=== PATIENT | male | born 1940 | race Caucasian/White ===

== ENCOUNTER 2018-11-02 12:55 | Inpatient (IN) | payer MEDICARE, MEDICAID ==
[~2018-11-02] VITALS: Ht 182.8 cm; Wt 68.0 kg
--- NOTE | ~2018-11-02 | DS ---
[place], [place] DISCHARGE SUMMARY NAME: HARLAN ROJAS [facility] #: [id number] UNIT #: [id number] ROOM: 317 DOCTOR: JOSE AGUERO MD BIRTHDATE: [birth year] DOS: 11/09/2018 CHIEF COMPLAINT: "I am ready for bed." HISTORY OF PRESENT ILLNESS: This is an 78-year-old white male who resides at [facility] in [place], [place]. While in the facility, he has had a change in his cognition. He has also had a corresponding increase in agitation and aggression. The patient has been an elopement risk and has been difficult to redirect. He has also been exhibiting delusions and sexually inappropriate behavior. He has attempted to kiss STNAs and touch their breasts, attempts to redirect have been unsuccessful and it was felt that an inpatient stabilization at the [facility] was warranted. He was subsequently admitted to rule out organic factors, to engage in individual and wynn milieu activity and to return to the least restrictive environment. SUMMARY OF HOSPITAL COURSE: The patient was admitted to the unit where routine screening examinations revealed a vitamin B12 level low at 227, so vitamin B12 1000 mcg IM monthly was ordered. His vitamin D level was also low at 17.8, so vitamin D 50,000 International Units weekly was started. The patient had his Namzaric discontinued due to lack of effectiveness and he was started simultaneously then on Exelon patch 4.6 mg a day and maintained on the Namenda component at 10 mg b.i.d. Over the course of his week stay, the Exelon patch was increased from the 4.6 mg dose to the 13.3 mg dose with a corresponding improvement in his behavior. His impulsivity discontinued. He was no longer exit seeking and he was not sexually inappropriate. He engaged in activities well and redirected with verbal prompting alone. Sleep and appetite normalized. He was subsequently discharged then back to [place]. MENTAL STATUS AT DISCHARGE: He is alert and oriented to person, possibly place, not to time. Mood does seem to be more euthymic. Affect appropriate. No symptoms of elliott or hypomania were present. No psychotic symptoms were noted. Short-term memory still remained problematic. DIAGNOSES AT THE TIME OF DISCHARGE: Intermittent explosive disorder and Alzheimer's dementia. DISPOSITION: The patient is returning to [facility] in [place], [place]. I will be the treating psychiatrist of record. His prescriptions were escribed to [facility]. At the time of discharge, he was psychiatrically and medically stable. [place], [place] DISCHARGE SUMMARY NAME: HARLAN ROJAS UNIT #: [id number] ROOM: [facility] DOCTOR: JOSE AGUERO MD BIRTHDATE: [birth year] JOSE AGUERO MD CM:DISCHARG [id number] JOSE AGUERO MD 11/09/18 1107 interface
[2018-11-02] MEDS ORDERED: ASPIRIN CHEWABL81 MG PO (13:08)
[2018-11-02] MEDS ORDERED: PLAVIX75 M1 PO (13:08)
[2018-11-02] MEDS ORDERED: LIPITOR80 MG PO (13:08)
[2018-11-02] MEDS ORDERED: MELATONIN3 MG PO (13:09)
[2018-11-02] MEDS ORDERED: NAMZARIC 28 MG1 EACH PO (13:09)
[2018-11-02] MEDS ORDERED: REMERON15 M2 PO (13:10)
[2018-11-02] MEDS ORDERED: OMEPRAZOLE D/R20 MG PO (13:10)
[2018-11-02] MEDS ORDERED: SEROQUEL25 MG PO (13:11)
[2018-11-02] MEDS ORDERED: TAGAMET HB200 M1 PO (13:13)
[2018-11-02] MEDS ORDERED: MIDODRINE HCL5 M1 PO (13:14)
[2018-11-02 16:15] VITALS: BP 182/98
[2018-11-02 16:16] VITALS: BP 182/98
[2018-11-02 19:03] LABS: BILIRUBIN NEGATIVE (NEGATIVE); BLOOD NEGATIVE (NEGATIVE); CLARITY CLEAR (CLEAR); COLOR YELLOW (YELLOW); GLUCOSE NEGATIVE (NEGATIVE); KETONE NEGATIVE (NEGATIVE); LEUKO ESTERASE NEGATIVE (NEGATIVE); NITRITE NEGATIVE (NEGATIVE); SPECIFIC GRAVITY <= 1.005 (1.005-1.030); UROBILINOGEN 0.2 E.U./dl (0.2-1.0)
[2018-11-02 19:25] LABS: BACTERIA TRACE; EPITHELIAL CELLS 0-2; HYALINE CAST 0-2; WBC 0-2 wbc/hpf (0-5)
[2018-11-02 20:00] VITALS: BP 176/88
[2018-11-02 21:05] VITALS: BP 142/84
[2018-11-03 06:51] LABS: BASO # 0.1 10*3/uL (0.0-0.1); BASO % 1.2 % (0.0-1.0); HEMATOCRIT 42.4 % (42.0-52.0); HEMOGLOBIN 13.5 g/dl (14.0-18.0); LYMPH # 1.8 10*3/uL (1.3-4.4); LYMPH % 21.8 % (27.0-41.0); MEAN CELL VOLUME 92.6 fl (80.0-94.0); MEAN CORPUSCULAR HGB 29.5 pg (27.0-31.0); MEAN CORPUSCULAR HGB CONC 31.8 g/dl (33.0-37.0); MEAN PLATELET VOLUME 9.1 fl (9.6-12.3); MONO # 0.9 10*3/uL (0.1-1.0); MONO % 10.9 % (3.0-9.0); NEUT # 5.3 10*3/uL (2.3-7.9); NEUT % 65.7 % (47.0-73.0); PLATELET COUNT AUTOMATED 340 10*3/uL (130-400); RED BLOOD COUNT 4.58 10*6/uL (4.50-5.90); RED CELL DISTRI WIDTH 13.7 % (0-14.5); WHITE BLOOD COUNT 8.1 10*3/uL (4.8-10.8)
[2018-11-03 07:11] LABS: ALBUMIN 2.9 gm/dl (3.1-4.5); ALKALINE PHOSPHATASE 156 U/L (45-117); BUN 21 mg/dl (7-24); CHLORIDE 107 mmol/L (98-107); CHOLESTEROL 125 mg/dL (<200); CREATININE 1.32 mg/dL (0.70-1.30); HDL CHOLESTEROL 37 mg/dl (40-60); LDL CHOLESTEROL 67 mg/dL (9-159); POTASSIUM 4.1 mmol/L (3.5-5.1); SGOT/AST 19 IU/L (3-35); SGPT/ALT 23 U/L (12-78); SODIUM 140 mmol/L (136-145); TOTAL PROTEIN 6.9 gm/dL (6.4-8.2); TRIGLYCERIDES 106 mg/dl (<150); VLDL CHOLESTEROL 21 mg/dL (6-40)
[2018-11-03 07:15] VITALS: BP 144/78
[2018-11-03 07:55] LABS: VITAMIN D, 25-HYDROXY 17.8 ng/mL (30-100)
[2018-11-03 20:00] VITALS: BP 132/68
[2018-11-04 07:17] VITALS: BP 130/58
[2018-11-04 20:00] VITALS: BP 133/72
[2018-11-05 08:02] VITALS: BP 154/79
[2018-11-05 20:00] VITALS: BP 140/72
[2018-11-06 07:51] VITALS: BP 126/71
[2018-11-06 20:18] VITALS: BP 137/70
[2018-11-07 07:46] VITALS: BP 119/65
[2018-11-07 20:05] VITALS: BP 136/68
[2018-11-08 07:39] VITALS: BP 142/81
[2018-11-08 20:33] VITALS: BP 144/70
[2018-11-09 07:36] VITALS: BP 133/56
[2018-11-09] MEDS ORDERED: EXELON13.3 MG/21 T (09:55)
[2018-11-09] MEDS ORDERED: MIRTAZAPINE15 M2 PO (09:55)
[2018-11-09] MEDS ORDERED: Vitamin D PO (09:55)
[2018-11-09] MEDS ORDERED: MEMANTINE HCL10 MG PO (09:55)
[2018-11-09] MEDS ORDERED: B121000 MCG/1 IM (09:55)
== END 2018-11-09 15:57 | disposition other institution (70) | DRG 883 ==
LOC: 3N 12:55
PROVIDERS: ADMIT Psychiatry & Neurology Psychiatry
DX: F63.81 Intermittent explosive disorder (principal); F23 Brief psychotic disorder; F52.8 Other sexual dysfunction not due to a substance or known physiological condition; I16.0 Hypertensive urgency; F41.9 Anxiety disorder, unspecified; F32.9 Major depressive disorder, single episode, unspecified; G30.9 Alzheimer's disease, unspecified; F02.80 Dementia in other diseases classified elsewhere, unspecified severity, without behavioral disturbance, psychotic disturbance, mood disturbance, and anxiety; M19.90 Unspecified osteoarthritis, unspecified site; K21.9 Gastro-esophageal reflux disease without esophagitis; I25.10 Atherosclerotic heart disease of native coronary artery without angina pectoris; E78.5 Hyperlipidemia, unspecified; R26.9 Unspecified abnormalities of gait and mobility; I95.0 Idiopathic hypotension; I73.9 Peripheral vascular disease, unspecified; Z79.82 Long term (current) use of aspirin; Z86.73 Personal history of transient ischemic attack (TIA), and cerebral infarction without residual deficits; Z79.899 Other long term (current) drug therapy